=== PATIENT | male | born 1990 | race African-American/Black ===

== ENCOUNTER 2024-01-14 08:07 | Emergency (ER) | payer OTHER ==
[2024-01-14 08:28] VITALS: TEMP 97; O2SAT 97
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
--- NOTE | 2024-01-14 09:11 | XRAY ---
Indication: Pain following injury. Comparison: None 3 portable views right hand obtained. No bony, articular, or soft tissue abnormalities.
--- NOTE | 2024-01-14 09:11 | XRAY ---
Indication: Pain following injury. Comparison: None 3 portable views right wrist obtained. No bony, articular, or soft tissue abnormalities.
[2024-01-14 10:08] VITALS: BP 160/96; PULSE 70; RESP 16
== END 2024-01-14 10:15 | disposition home or self-care (01) ==
LOC: ED 08:07
DX: S66.411A Strain of intrinsic muscle, fascia and tendon of right thumb at wrist and hand level, initial encounter (principal); W22.09XA Striking against other stationary object, initial encounter; Y92.511 Restaurant or cafe as the place of occurrence of the external cause; Y99.0 Civilian activity done for income or pay
CPT/HCPCS: 29125; 73110; 73130; 99283